=== PATIENT | male | born 1985 | race Caucasian/White ===

== ENCOUNTER 2023-09-08 08:51 | Inpatient (IN) | payer BC, OTHER ==
[2023-09-08] MEDS: MORPHINE SULFATE 4 MG/ML SYRINGE IVP STA ×2 (09:27→10:59)
[2023-09-08] MEDS: SODIUM CHLORIDE 0.9% 1,000 ML IV STA (09:27)
[2023-09-08] MEDS: FAMOTIDINE 20 MG/2 ML VIAL IV STA (09:27)
--- NOTE | 2023-09-08 09:29 | ED ---
Abdominal Pain HPI - General Chief Complaint: Abdominal Pain Stated Complaint: ABD Pain Time Seen by Provider: 09/08/23 09:05 Source: patient, RN notes reviewed Mode of arrival: ambulatory Limitations: no limitations - History of Present Illness Initial Comments: This is a 38-year-old male who presents to the emergency department for abdominal pain. Patient states that he ate a meatball sub last night and around 4 AM developed severe pain in the upper abdomen. He has had nausea but no vomiting. States that he has had problems with this in the past, and usually has associated vomiting as well as radiation of pain into the back. He has not had any radiation of pain or vomiting this time, however the pain has never been this severe or lasted this long. Reports a history of acid reflux, but denies any known history of problems with his gallbladder. Patient did have a notably elevated blood pressure on arrival. States that he has a history of high blood pressure, but does not like going to the doctor and ran out of his medication, and thus stopped taking it. Denies any headaches or visual changes. MD Complaint: abdominal pain - Related Data Home Medications Medication Instructions Recorded Confirmed No Known Home Medications 09/08/23 09/08/23 Allergies Allergy/AdvReac Type Severity Reaction Status Date / Time No Known Allergies Allergy Verified 09/08/23 16:41 Review of Systems ROS Statement: Those systems with pertinent positive or pertinent negative responses have been documented in the HPI. ROS Other: All systems not noted in ROS Statement are negative. Past Medical History Past Medical History: Hypertension History of Any Multi-Drug Resistant Organisms: None Reported Past Surgical History: No Surgical Hx Reported Past Psychological History: Depression Smoking Status: Vaper Past Alcohol Use History: Rare Past Drug Use History: Marijuana General Exam Limitations: no limitations General appearance: alert, in distress Respiratory exam: Present: normal lung sounds bilaterally. Absent: respiratory distress, wheezes, rales, rhonchi, stridor Cardiovascular Exam: Present: regular rate, normal rhythm, normal heart sounds. Absent: systolic murmur, diastolic murmur, rubs, gallop, clicks GI/Abdominal exam: Present: soft, tenderness (Epigastric), normal bowel sounds. Absent: distended Neurological exam: Present: alert, oriented X3, CN II-XII intact Psychiatric exam: Present: normal affect, normal mood Skin exam: Present: warm, dry, intact, normal color. Absent: rash Course Vital Signs 03/23/24 03/23/24 03/23/24 08:51 10:30 11:00 Temperature 98.3 F Pulse Rate 82 66 71 Respiratory 20 20 16 Rate Blood Pressure 212/136 186/113 185/116 O2 Sat by Pulse 99 95 96 Oximetry 09/08/23 09/08/23 09/08/23 11:30 12:00 12:30 Temperature Pulse Rate 67 64 64 Respiratory 15 17 18 Rate Blood Pressure 179/125 156/99 186/129 O2 Sat by Pulse 95 96 96 Oximetry 09/08/23 09/08/23 09/08/23 13:00 13:30 14:00 Temperature Pulse Rate 77 78 62 Respiratory 18 18 18 Rate Blood Pressure 171/83 155/100 166/103 O2 Sat by Pulse 97 99 97 Oximetry 09/08/23 17:13 Temperature 97.3 F L Pulse Rate 88 Respiratory 20 Rate Blood Pressure 182/111 O2 Sat by Pulse 97 Oximetry Medical Decision Making - Medical Decision Making This is a 38 year old male who presents to the emergency department for abdominal pain. Was pt. sent in by a medical professional or institution? @ -No Did you speak to anyone other than the patient for history? @ -No Did you review nursing and triage notes? @ -Yes, and I agree, it is accurate with regards to the patient's symptoms. Were old charts reviewed? @ -No Differential Diagnosis? @ -Differential Abdominal Pain Men: Appendicitis, cholecystitis, diverticulosis, ischemic bowel, pancreatitis, hepa titis, UTI, gastroenteritis, AAA, incarcerated hernia, bowel obstruction, constipation, inflammatory bowel, hepatitis, peptic ulcer disease, splenic infarction, perforated viscus, testicular torsion, this is not meant to be an all-inclusive list EKG interpreted by me (3pts min.)? @ -EKG interpreted by me demonstrating the following: Sinus rhythm. Ventricular rate 89 bpm, FL interval 122 ms, QRS duration 95 ms, QTc 401 ms. X-rays interpreted by me (1pt min.)? @ -Not obtained CT interpreted by me (1pt min.)? @ -Not obtained U/S interpreted by me (1pt. min.)? @ -Gallbladder US obtained. My interpretation identifies cholelithiasis/biliary sludge. What testing was considered but not performed? (CT, X-rays, U/S, labs)? Why? @ -None What meds were considered but not given? Why? @ -None Did you discuss the management of the patient with other professionals? @ -Yes, Dr. Erwin, who advised admission to medicine with surgical consult. Jermaine with [facility] accepts the patient for admission to medicine. Did you reconcile home meds? @ -No Was smoking cessation discussed for >3mins.? @ -No Was critical care preformed (if so, how long)? @ -No Were there social determinants of health that impacted care today? How? (Homelessness, low income, unemployed, alcoholism, drug addiction, transportation, low edu. Level, literacy, decrease access to med. care, snf, rehab)? @ -No Was there de-escalation of care discussed even if they declined? (Discuss DNR or withdrawal of care, Hospice)? @ -No What co-morbidities impacted this encounter? (DM, HTN, Smoking, COPD, CAD, Cancer, CVA, Hep., AIDS, mental health diagnosis, sleep apnea, morbid obesity)? @ -Morbid obesity Was patient admitted / discharged? @ -Admitted. Patient's blood pressure was notably elevated on arrival at 212/136. He has been diagnosed with hypertension in the past, but does not follow with a primary care provider regularly and is no longer taking any m edication. EKG also revealed some concerning ST depression. Lab work demonstrates leukocytosis with a white blood cell count of 13.5. Lactic acid elevated at 2.8. We did get 2 troponins due to EKG changes, both of which were negative. Gallbladder ultrasound obtained demonstrating biliary sludge/small gravel like stones without evidence of acute cholecystitis. Patient did receive multiple doses of pain medication, however the pain returned after 30 minutes to an hour each time. Given the patient's intractable pain with associated leukocytosis and elevated lactic acid, case discussed with general surgery. He advised that the patient could be admitted for persistent pain related to bili reba colic, but requested admission to medicine. Patient admitted to medicine for intractable abdominal pain related to biliary colic. Undiagnosed new problem with uncertain prognosis? @ -None Drug Therapy requiring intensive monitoring for toxicity (Heparin, Nitro, Insulin, Cardizem)? @ -None Were any procedures done? @ -None Diagnosis/symptom? @ -Biliary colic, cholelithiasis, intractable abdominal pain Acute, or Chronic, or Acute on Chronic? @ -Acute Uncomplicated (without systemic symptoms) or Complicated (systemic symptoms)? @ -Complicated Side effects of treatment? @ -None Exacerbation, Progression, or Severe Exacerbation] @ -Not applicable Poses a threat to life or bodily function? @ -Yes This case was discussed in detail with the attending ED physician, Dr. Myers. Presentation, findings, and treatment plan discussed in detail as well. - Lab Data Result diagrams: 09/08/23 09:08 09/08/23 09:08 Lab Results 09/08/23 09/08/23 09/08/23 Range/Units 09:08 09:08 09:08 WBC 13.5 H (3.8-10.6) k/uL RBC 5.18 (4.30-5.90) m/uL Hgb 16.2 (13.0-17.5) gm/dL Hct 48.5 (39.0-53.0) % MCV 93.6 (80.0-100.0) fL MCH 31.3 (25.0-35.0) pg MCHC 33.4 (31.0-37.0) g/dL RDW 12.7 (11.5-15.5) % Plt Count 293 (150-450) k/uL MPV 7.9 Neutrophils % 82 % Lymphocytes % 12 % Monocytes % 4 % Eosinophils % 1 % Basophils % 1 % Neutrophils # 11.0 H (1.3-7.7) k/uL Lymphocytes # 1.6 (1.0-4.8) k/uL Monocytes # 0.6 (0-1.0) k/uL Eosinophils # 0.1 (0-0.7) k/uL Basophils # 0.1 (0-0.2) k/uL Sodium 139 (137-145) mmol/L Potassium 4.9 (3.5-5.1) mmol/L Chloride 105 (98-107) mmol/L Carbon Dioxide 22 (22-30) mmol/L Anion Gap 12 mmol/L BUN 12 (9-20) mg/dL Creatinine 0.63 L (0.66-1.25) mg/dL Est GFR (CKD-EPI)AfAm >90 (>60 ml/min/1.73 sqM) Est GFR (CKD-EPI)NonAf >90 (>60 ml/min/1.73 sqM) Glucose 211 H (74-99) mg/dL Lactic Ac Sepsis Rflx Plasma Lactic Acid Arnaldo 2.8 H* (0.7-2.0) mmol/L Calcium 9.4 (8.4-10.2) mg/dL Total Bilirubin 0.7 (0.2-1.3) mg/dL AST 54 (17-59) U/L ALT 54 H (4-49) U/L Alkaline Phosphatase 45 (38-126) U/L Troponin I (0.000-0.034) ng/mL Total Protein 7.7 (6.3-8.2) g/dL Albumin 4.6 (3.5-5.0) g/dL Amylase 50 (30-110) U/L Lipase 70 (23-300) U/L 09/08/23 09/08/23 09/08/23 Range/Units 09:28 09:49 11:19 WBC (3.8-10.6) k/uL RBC (4.30-5.90) m/uL Hgb (13.0-17.5) gm/dL Hct (39.0-53.0) % MCV (80.0-100.0) fL MCH (25.0-35.0) pg MCHC (31.0-37.0) g/dL RDW (11.5-15.5) % Plt Count (150-450) k/uL MPV Neutrophils % % Lymphocytes % % Monocytes % % Eosinophils % % Basophils % % Neutrophils # (1.3-7.7) k/uL Lymphocytes # (1.0-4.8) k/uL Monocytes # (0-1.0) k/uL Eosinophils # (0-0.7) k/uL Basophils # (0-0.2) k/uL Sodium (137-145) mmol/L Potassium (3.5-5.1) mmol/L Chloride (98-107) mmol/L Carbon Dioxide (22-30) mmol/L Anion Gap mmol/L BUN (9-20) mg/dL Creatinine (0.66-1.25) mg/dL Est GFR (CKD-EPI)AfAm (>60 ml/min/1.73 sqM) Est GFR (CKD-EPI)NonAf (>60 ml/min/1.73 sqM) Glucose (74-99) mg/dL Lactic Ac Sepsis Rflx Y Plasma Lactic Acid Arnaldo (0.7-2.0) mmol/L Calcium (8.4-10.2) mg/dL Total Bilirubin (0.2-1.3) mg/dL AST (17-59) U/L ALT (4-49) U/L Alkaline Phosphatase (38-126) U/L Troponin I <0.012 <0.012 (0.000-0.034) ng/mL Total Protein (6.3-8.2) g/dL Albumin (3.5-5.0) g/dL Amylase (30-110) U/L Lipase (23-300) U/L - Radiology Data Radiology results: report reviewed, image reviewed Disposition Clinical Impression: Intractable abdominal pain, Biliary colic, Biliary sludge, Cholelithiasis Disposition: ADMITTED IP TO THIS [facility] Time of Disposition: 13:14
[2023-09-08 09:30] LABS: Basophils # (A) 0.1 k/uL (0-0.2); Basophils % (A) 1 %; Eosinophils # (A) 0.1 k/uL (0-0.7); Eosinophils % (A) 1 %; HCT 48.5 % (39.0-53.0); HGB 16.2 gm/dL (13.0-17.5); Lymphocytes # (A) 1.6 k/uL (1.0-4.8); Lymphocytes % (A) 12 %; MCH 31.3 pg (25.0-35.0); MCHC 33.4 g/dL (31.0-37.0); MCV 93.6 fL (80.0-100.0); Mean Platelet Volume 7.9; Monocytes # (A) 0.6 k/uL (0-1.0); Monocytes % (A) 4 %; Neutrophils % (A) 82 %; Platelet Count 293 k/uL (150-450); RBC 5.18 m/uL (4.30-5.90); RDW 12.7 % (11.5-15.5); WBC 13.5 k/uL (3.8-10.6)
[2023-09-08 09:44] LABS: ALT 54 U/L (4-49); African American GFR (CKD) >90 (>60 ml/min/1.73 sqM); Albumin 4.6 g/dL (3.5-5.0); Amylase 50 U/L (30-110); Anion Gap 12 mmol/L; Blood Urea Nitrogen 12 mg/dL (9-20); Calcium 9.4 mg/dL (8.4-10.2); Carbon Dioxide 22 mmol/L (22-30); Chloride 105 mmol/L (98-107); Glucose 211 mg/dL (74-99); Lipase 70 U/L (23-300); Non-African American GFR(CKD) >90 (>60 ml/min/1.73 sqM); Sodium 139 mmol/L (137-145); Total Bilirubin 0.7 mg/dL (0.2-1.3); Total Protein 7.7 g/dL (6.3-8.2)
[2023-09-08 09:48] LABS: AST 54 U/L (17-59); Alkaline Phosphatase 45 U/L (38-126); Potassium 4.9 mmol/L (3.5-5.1)
[2023-09-08] MEDS: KETOROLAC 15 MG/ML 1 ML VIAL IVP STA (10:16)
--- NOTE | 2023-09-08 10:29 | US ---
EXAMINATION TYPE: US gallbladder DATE OF EXAM: 09/08/2023 COMPARISON: NONE CLINICAL INDICATION: Male, 38 years old with history of RUQ pain; Severe epigastric pain after eating last night TECHNIQUE: Multiple sonographic images of the right upper quadrant are obtained. FINDINGS: EXAM MEASUREMENTS: Liver Length: 21.1 cm Gallbladder Wall: 0.1 cm CBD: not visualized due to overlying bowel Right Kidney: 12.6x6.8x6.9 cm Pancreas: Tail obscured by overlying bowel gas Liver: enlarged, increased echogenicity and attenuation, coarse echotexture Gallbladder: there appears to be small, gravel like stones/sludge within the GB Evidence for sonographic Ferreira's sign: No CBD: Obscured by overlying bowel gas Right Kidney: No hydronephrosis or masses seen exam very limited by large body habitus and overlying bowel gas IMPRESSION: 1. Limited study. 2. Fatty infiltration of liver and hepatomegaly. 3. Gallbladder sludge without distention, wall thickening or pericholecystic fluid. Sonographic Janell y sign is negative. 4. Limited evaluation of the pancreatic tail.
[2023-09-08] MEDS ORDERED: NALOXONE 0.4 MG/ML 1 ML VIAL IV PRN (13:12)
[2023-09-08] MEDS ORDERED: ONDANSETRON 4 MG/2 ML VIAL IVP PRN (13:12)
[2023-09-08] MEDS ORDERED: MORPHINE SULFATE 2 MG/ML SYRINGE IVP PRN (13:23)
[2023-09-08] MEDS: HYDROmorphone 0.5 MG/0.5 ML SYRINGE IVP STA (14:25)
[2023-09-08] MEDS: SODIUM CHLORIDE 0.9% 1,000 ML IV SCH (14:25)
--- NOTE | 2023-09-08 14:35 | P.HPIM ---
History of Present Illness H&P Date: 09/08/23 History of Presenting Illness: Patient is a very pleasant 38-year-old male with a past medical history of hypertension and obesity. He presented to the emergency department with a chief complaint of right upper quadrant and epigastric pain. Patient reports awakening around 3 AM with pain to his right upper quadrant accompanied by nausea and significant acid reflux. Patient reports this pain progressively worsened to the point it was severe 10 out of 10 causing him to break out in cold sweats. He denies any noted fevers, chills, chest pain, palpitations, shortness of breath, cough or congestion, episodes of vomiting, or experiencing any constipation, diarrhea, melena, or hematochezia. Patient reports he does have a history of hypertension but stopped taking his medications approximately 5 years ago because he becomes extremely anxious around doctors and did not follow back up. Patient reports he is from [place] and does not have a P CP. He underwent evaluation in the emergency department. Vital signs upon arrival blood pressure 212/136, heart rate 82, respiratory rate 20, temp 98.3 F, and SpO2 of 99% on room air. EKG was completed showing normal sinus rhythm at 89 bpm with T wave inversion in inferior leads II, III, and aVF. Labs completed and reviewed. CBC showing leukocytosis with WBC count of 13.5. BMP showing mild hyperglycemia with glucose of 211. Liver profile showing elevated ALT of 54 otherwise normal findings. Amylase 50 and lipase 70. Lactic acid was elevated at 2.8. Troponin negative at less than 0.012. Gallbladder ultrasound completed showing gallbladder sludge. Patient received 2 L bolus of 0.9% normal saline and was started on IV antibiotics with Rocephin 2 g. Patient admitted under our services with consultation to general surgeon. General surgery evaluated stating patient with acute cholecystitis recommending clear liquids and n.p.o. at midnight with tentative plans for laparoscopic cholecystectomy within the next 48 hours. Review of systems: Pertinent positives and negatives as discussed in HPI, a complete review of systems was performed and all other systems are negative. Physical exam: Vital signs reviewed and stable. General: Nontoxic, no distress and appears stated age. Morbidly obese Derm: Skin warm and dry, normal coloration for ethnicity. Head: Atraumatic, normocephalic and symmetric. Eyes: EOMs intact, no lid lag, and anicteric sclera Mouth: no lip lesions, mucus membranes moist Cardiovascular: regular rate and rhythm with normal S1S2, no murmur, positive posterior tibial pulses bilaterally, and cap refill < 2 seconds. Lungs: Respirations even, regular, and unlabored on room air. Lungs CTA bilaterally, no rhonchi, no rales, no wheezing, and no accessory muscle usage. Abdominal: Obese abdomen, significant tenderness to right upper quadrant, no guarding, no appreciable organomegaly Ext: ROM intact. No gross muscle atrophy, no edema, no contractures Neuro: Speech clear, face symmetrical and CN II-XII grossly intact with no noted focal neuro deficits Psych: Alert and oriented to person, place, time, and situation. Appropriate and pleasant affect. Assessment and Plan of Care: Acute cholecystitis Intractable abdominal pain, secondary to above Lactic acidosis -General surgery consulted and discussed plan of care with general surgeon stating patient with acute cholecystitis and recommending clear liquid diet and n.p.o. at midnight with tentative plans for laparoscopic cholecystectomy within the next 48 hours. -Gentle IV fluid hydration with 0.9% normal saline at 100 cc/h. -GI prophylaxis with Protonix 40 mg IVP daily. -Symptomatic care and pain management. Zofran 4 mg IVP every 8 hours as needed for nausea and/or vomiting. Morphine 4 mg IVP every 4 hours as needed for pain. -IV antibiotics with Rocephin 2 g every 24 hours. -Patient received 2 L bolus and placed on maintenance infusion, continue to monitor lactate for resolution of lactic acidosis Abnormal EKG, concerning for inferior ischemia Hypertensive urgency upon arrival with longstanding history of poorly controlled hypertension -EKG completed showing normal sinus rhythm at 89 bpm with T wave inversion in inferior leads II, III, and aVF. -Troponins negative at less than 0.012 x 2 draws. -Cardiology consulted for evaluation and surgical clearance -Order placed for echocardiogram -Patient placed on continuous telemetry monitoring -Patient started on amlodipine 5 mg daily Data and imaging reviewed: As stated above in HPI CODE STATUS: Full code DVT prophylaxis: Lovenox Anticipated discharge date: Clinical course to determine Anticipated discharge place: Clinical course to determine Patient was seen independently by Nurse Practitioner. This document was prepared using [employer] dictation software. Please allow for errors in director of academic while rare they do occur. Jermaine Jose NP rendered care for this patient independently, reviewed the findings and plan as documented in the note above. I did not physically speak with or examine the patient on this date. Past Medical History Past Medical History: Hypertension History of Any Multi-Drug Resistant Organisms: None Reported Past Surgical History: No Surgical Hx Reported Past Psychological History: Depression Smoking Status: Vaper Past Alcohol Use History: Rare Past Drug Use History: Marijuana Medications and Allergies Allergies Allergy/AdvReac Type Severity Reaction Status Date / Time No Known Allergies Allergy Verified 09/08/23 16:41 Physical Exam Vitals: Vital Signs Temp Pulse Resp BP Pulse Ox 09/08/23 14:00 62 18 166/103 97 09/08/23 13:30 78 18 155/100 99 09/08/23 13:00 77 18 171/83 97 09/08/23 12:30 64 18 186/129 96 09/08/23 12:00 64 17 156/99 96 09/08/23 11:30 67 15 179/125 95 09/08/23 11:00 71 16 185/116 96 09/08/23 10:30 66 20 186/113 95 09/08/23 08:51 98.3 F 82 20 212/136 99 Intake and Output 09/07/23 09/08/23 09/08/23 22:59 06:59 14:59 Other: Weight 172.365 kg Results CBC & Chem 7: 09/08/23 09:08 09/08/23 09:08 Labs: Abnormal Lab Results - Last 24 Hours (Table) 09/08/23 09/08/23 09/08/23 Range/Units 09:08 09:08 09:08 WBC 13.5 H (3.8-10.6) k/uL Neutrophils # 11.0 H (1.3-7.7) k/uL Creatinine 0.63 L (0.66-1.25) mg/dL Glucose 211 H (74-99) mg/dL Plasma Lactic Acid Arnaldo 2.8 H* (0.7-2.0) mmol/L ALT 54 H (4-49) U/L
[2023-09-08] MEDS: cefTRIAXone IN SWFI 1,000 MG/10 ML SYRINGE IVP STA (15:03)
[2023-09-08] MEDS: amLODIPine 5 MG TAB PO SCH (15:03)
[2023-09-08] MEDS: SODIUM CHLORIDE 0.9% 1,000 ML IV ONE (16:14)
--- NOTE | 2023-09-08 21:03 | P.GSCN ---
History of Present Illness Consult date: 09/08/23 Reason for Consult: RUQ Pain History of present illness: 38-year-old male with no past medical history presents with right upper quadrant pain. Patient states that he has had acute onset of right upper quadrant pain for the past 2 days. He states he has had prior episodes such as this but not as severe. He states that the pain occurs when he has greasy fatty foods in the past and states that he had a large fatty meal prior to the onset of his pain. He endorses nausea and emesis. No hematemesis. No fevers or chills. No shortness of breath or chest pain. Endorses bowel movements and flatus the day prior to presentation. No melena or hematochezia. Upon presentation to [facility] right upper quadrant ultrasound was obtained which showed evidence of gallbladder sludge without evidence of pericholecystic fluid or wall thickening. Review of Systems Negative except for as stated above Past Medical History Past Medical History: Hypertension History of Any Multi-Drug Resistant Organisms: None Reported Past Surgical History: No Surgical Hx Reported Past Psychological History: Depression Smoking Status: Vaper Past Alcohol Use History: Rare Past Drug Use History: Marijuana Medications and Allergies Home Medications Medication Instructions Recorded Confirmed Type No Known Home Medications 09/08/23 09/08/23 History Allergies Allergy/AdvReac Type Severity Reaction Status Date / Time No Known Allergies Allergy Verified 09/08/23 16:41 Surgical - Exam Vital Signs Temp Pulse Resp BP Pulse Ox 98.3 F 82 20 212/136 99 09/08/23 08:51 09/08/23 08:51 09/08/23 08:51 09/08/23 08:51 09/08/23 08:51 Gen: AxO, appears uncomfortable Pulm: non-labored respirations Abd: soft, tender to palpation in RUQ. Ferreira's sign positive. Mildly distended. No guarding/rebound/rigidity Extrem: no edema seen Results - Labs 09/08/23 09:08 09/08/23 09:08 Abnormal Lab Results - Last 24 Hours (Table) 09/08/23 09/08/23 09/08/23 Range/Units 09:08 09:08 09:08 WBC 13.5 H (3.8-10.6) k/uL Neutrophils # 11.0 H (1.3-7.7) k/uL Creatinine 0.63 L (0.66-1.25) mg/dL Glucose 211 H (74-99) mg/dL Plasma Lactic Acid Arnaldo 2.8 H* (0.7-2.0) mmol/L ALT 54 H (4-49) U/L 09/08/23 Range/Units 15:00 WBC (3.8-10.6) k/uL Neutrophils # (1.3-7.7) k/uL Creatinine (0.66-1.25) mg/dL Glucose (74-99) mg/dL Plasma Lactic Acid Arnaldo 2.8 H* (0.7-2.0) mmol/L ALT (4-49) U/L Diabetes panel 09/08/23 Range/Units 09:08 Sodium 139 (137-145) mmol/L Potassium 4.9 (3.5-5.1) mmol/L Chloride 105 (98-107) mmol/L Carbon Dioxide 22 (22-30) mmol/L BUN 12 (9-20) mg/dL Creatinine 0.63 L (0.66-1.25) mg/dL Glucose 211 H (74-99) mg/dL Calcium 9.4 (8.4-10.2) mg/dL AST 54 (17-59) U/L ALT 54 H (4-49) U/L Alkaline Phosphatase 45 (38-126) U/L Total Protein 7.7 (6.3-8.2) g/dL Albumin 4.6 (3.5-5.0) g/dL Calcium panel 09/08/23 Range/Units 09:08 Calcium 9.4 (8.4-10.2) mg/dL Albumin 4.6 (3.5-5.0) g/dL Pituitary panel 09/08/23 Range/Units 09:08 Sodium 139 (137-145) mmol/L Potassium 4.9 (3.5-5.1) mmol/L Chloride 105 (98-107) mmol/L Carbon Dioxide 22 (22-30) mmol/L BUN 12 (9-20) mg/dL Creatinine 0.63 L (0.66-1.25) mg/dL Glucose 211 H (74-99) mg/dL Calcium 9.4 (8.4-10.2) mg/dL Adrenal panel 03/23/24 Range/Units 09:08 Sodium 139 (137-145) mmol/L Potassium 4.9 (3.5-5.1) mmol/L Chloride 105 (98-107) mmol/L Carbon Dioxide 22 (22-30) mmol/L BUN 12 (9-20) mg/dL Creatinine 0.63 L (0.66-1.25) mg/dL Glucose 211 H (74-99) mg/dL Calcium 9.4 (8.4-10.2) mg/dL Total Bilirubin 0.7 (0.2-1.3) mg/dL AST 54 (17-59) U/L ALT 54 H (4-49) U/L Alkaline Phosphatase 45 (38-126) U/L Total Protein 7.7 (6.3-8.2) g/dL Albumin 4.6 (3.5-5.0) g/dL Assessment and Plan Assessment: Patient is a 38-year-old male with acute onset of right upper quadrant pain and leukocytosis with ultrasonographic evidence of gallbladder sludge concerning for biliary colic versus acute cholecystitis Plan: -CLD NPO at ME -IVF hydration -IV Abx -PRN pain and nausea control -DVT/GI PPx -Trend LFT -Patient will likely require laparoscopic cholecystectomy this admission; timing TBD Damian Erwin MD General Surgery
[2023-09-08] MEDS: MORPHINE SULFATE 4 MG/ML SYRINGE IV PRN (21:41)
[2023-09-08] MEDS: ALPRAZolam 0.5 MG TAB PO STA ×2 (23:42)
[2023-09-09] MEDS: hydrALAZINE HCL 25 MG TAB PO STA (01:00)
[2023-09-09] MEDS: ACETAMINOPHEN IV (For NPO) 1,000 MG in EMPTY BAG 1 BAG IVPB PRN (01:58)
[2023-09-09 02:54] VITALS: TEMP 98
[2023-09-09] MEDS: LABETALOL 200 MG TAB PO STA (03:15)
[2023-09-09] MEDS: hydrALAZINE HCL 50 MG TAB PO STA (05:47)
[2023-09-09 09:27] LABS: HCT 42.7 % (39.0-53.0); HGB 14.9 gm/dL (13.0-17.5); MCH 32.4 pg (25.0-35.0); MCHC 34.8 g/dL (31.0-37.0); MCV 93.2 fL (80.0-100.0); Mean Platelet Volume 8.3; Platelet Count 251 k/uL (150-450); RBC 4.58 m/uL (4.30-5.90); RDW 13.2 % (11.5-15.5); WBC 13.4 k/uL (3.8-10.6)
[2023-09-09] MEDS: amLODIPine 10 MG TAB PO SCH (09:42)
[2023-09-09] MEDS: PANTOPRAZOLE 40 MG/10 ML VIAL IV SCH (09:43)
[2023-09-09 09:46] LABS: ALT 43 U/L (4-49); AST 29 U/L (17-59); African American GFR (CKD) >90 (>60 ml/min/1.73 sqM); Albumin 3.8 g/dL (3.5-5.0); Alkaline Phosphatase 48 U/L (38-126); Anion Gap 11 mmol/L; Blood Urea Nitrogen 10 mg/dL (9-20); Calcium 8.6 mg/dL (8.4-10.2); Carbon Dioxide 25 mmol/L (22-30); Chloride 101 mmol/L (98-107); Glucose 153 mg/dL (74-99); Magnesium 1.8 mg/dL (1.6-2.3); Non-African American GFR(CKD) >90 (>60 ml/min/1.73 sqM); Potassium 4.1 mmol/L (3.5-5.1); Sodium 137 mmol/L (137-145); Total Bilirubin 0.6 mg/dL (0.2-1.3); Total Protein 6.3 g/dL (6.3-8.2)
--- NOTE | 2023-09-09 11:02 | P.PN ---
Subjective Progress Note Date: 09/09/23 Patient reports he is traveling from [place]. He does not live in [place]. Also confirms he was on Mediterranean diet and lost intentionally 20 pounds in 3 weeks. Patient ate a high fatty food and immediately developed right upper quadrant epigastric pain. He has had similar episodes. Patient also reports severe anxiety in the hospital accelerating his hypertension. Clinically patient presents with symptomatic gallstones/cholecystitis. Patient also confirms family history of mother also had cholecystectomy. Recommend cardiac risk assessment. Pending cardiac risk assessment, cholecystectomy described while inpatient. Options and care plans discussed and described with patient and family at bedside Objective - Vital Signs Vital signs: Vital Signs Temp 98 F 09/09/23 02:52 Pulse 95 09/09/23 09:41 Resp 16 09/09/23 09:41 BP 177/106 09/09/23 09:41 Pulse Ox 94 L 09/09/23 09:41 FiO2 Intake & Output 09/08/23 09/09/23 09/09/23 18:59 06:59 18:59 Intake Total 240 Balance 240 Weight 172.365 kg 172.365 kg Intake: Oral 240 Other: # Voids 1 - Labs CBC & Chem 7: 09/09/23 08:31 09/09/23 08:31 Labs: Abnormal Lab Results - Last 24 Hours (Table) 09/08/23 09/08/23 09/09/23 Range/Units 09:08 15:00 08:31 WBC 13.4 H (3.8-10.6) k/uL Glucose (74-99) mg/dL Hemoglobin A1c 6.6 H (<=6.0) % Plasma Lactic Acid Arnaldo 2.8 H* (0.7-2.0) mmol/L 09/09/23 Range/Units 08:31 WBC (3.8-10.6) k/uL Glucose 153 H (74-99) mg/dL Hemoglobin A1c (<=6.0) % Plasma Lactic Acid Arnaldo (0.7-2.0) mmol/L
--- NOTE | 2023-09-09 12:13 | P.PN ---
Subjective Progress Note Date: 09/09/23 Hospital course: Patient is a very pleasant 38-year-old male with a past medical history of hypertension and obesity. He presented to the emergency department with a chief complaint of right upper quadrant and epigastric pain. Patient reports awakening around 3 AM with pain to his right upper quadrant accompanied by nausea and significant acid reflux. Patient reports this pain progressively worsened to the point it was severe 10 out of 10 causing him to break out in cold sweats. He denies any noted fevers, chills, chest pain, palpitations, shortness of breath, cough or congestion, episodes of vomiting, or experiencing any constipation, diarrhea, melena, or hematochezia. Patient reports he does have a history of hypertension but stopped taking his medications approximately 5 years ago because he becomes extremely anxious around doctors and did not follow back up. Patient reports he is from [place] and does not have a PCP. He underwent evaluation in the emergency department. Vital signs upon arrival blood pressure 212/136, heart rate 82, respiratory rate 20, temp 98.3 F, and SpO2 of 99% on room air. EKG was completed showing normal sinus rhythm at 89 bpm with T wave inversion in inferior leads II, III, and aVF. Labs completed and reviewed. CBC showing leukocytosis with WBC count of 13.5. BMP showing mild hyperglycemia with glucose of 211. Liver profile showing elevated ALT of 54 otherwise normal findings. Amylase 50 and lipase 70. Lactic acid was elevated at 2.8. Troponin negative at less than 0.012. Gallbladder ultrasound completed showing gallbladder sludge. Patient received 2 L bolus of 0.9% normal saline and was started on IV antibiotics with Rocephin 2 g. Patient admitted under our services with consultation to general surgeon. General surgery evaluated stating patient with symptomatic gallstones/acute cholecystitis recommending cardiac clearance and pending cardiac clearance cholecystectomy while inpatient. Physical exam: Patient seen and fully evaluated at the bedside this morning. He does report at this time having near resolution of previous pain to right upper quadrant. He remains significantly hypertensive this morning with current blood pressure 177/106, amlodipine increased to 10 mg daily, will reevaluate blood pressure after medication administered and possibly place patient on additional antihypertensive medications pending repeat vital signs. Awaiting cardiac evaluation and further recommendations at this time. Vital signs reviewed General: Nontoxic, no distress and appears stated age. Morbidly obese Derm: Skin warm and dry, normal coloration for ethnicity. Head: Atraumatic, normocephalic and symmetric. Eyes: EOMs intact, no lid lag, and anicteric sclera Mouth: no lip lesions, mucus membranes moist Cardiovascular: regular rate and rhythm with normal S1S2, no murmur, positive posterior tibial pulses bilaterally, and cap refill < 2 seconds. Lungs: Respirations even, regular, and unlabored on room air. Lungs CTA bilat erally, no rhonchi, no rales, no wheezing, and no accessory muscle usage. Abdominal: Obese abdomen, patient reports near resolution of previous pain in right upper quadrant and was nontender upon palpation this morning, no guarding, no appreciable organomegaly Ext: ROM intact. No gross muscle atrophy, no edema, no contractures Neuro: Speech clear, face symmetrical and CN II-XII grossly intact with no noted focal neuro deficits Psych: Alert and oriented to person, place, time, and situation. Appropriate and pleasant affect. Assessment and Plan of Care: Symptomatic gallstones/acute cholecystitis Intractable abdominal pain, secondary to above Lactic acidosis, resolved -General surgery following, reviewed documentation in chart stating patient with symptomatic gallstones/acute cholecystitis recommending cardiac clearance and pending cardiac clearance cholecystectomy while inpatient. -Gentle IV fluid hydration with 0.9% normal saline at 100 cc/h. -GI prophylaxis with Protonix 40 mg IVP daily. -Symptomatic care and pain management. Zofran 4 mg IVP every 8 hours as needed for nausea and/or vomiting. Morphine 4 mg IVP every 4 hours as needed for pain. -Continue IV antibiotics with Rocephin 2 g every 24 hours. Abnormal EKG, concerning for inferior ischemia Hypertensive urgency upon arrival with longstanding history of poorly controlled hypertension -EKG completed showing normal sinus rhythm at 89 bpm with T wave inversion in inferior leads II, III, and aVF. -Troponins negative at less than 0.012 x 2 draws. -Cardiology consulted for evaluation and surgical clearance, appreciate recommendations -Order placed for echocardiogram -Patient placed on continuous telemetry monitoring -Amlodipine increased to 10 mg daily Hyperglycemia -Blood glucose level 211, hemoglobin A1c was obtained resulting at 6.6. Will likely start patient on Glucophage on discharge. Data and imaging reviewed: Vital signs reviewed. Blood pressure remains hypertensive with current BP 177/106, heart rate 95, respiratory rate 16, temp 98.0 F with SpO2 of 94% on room air. Morning labs reviewed. CBC showing leukocytosis with WBC count of 13.4. BMP showing mild hyperglycemia with glucose of 153. Magnesium 1.8. Liver profile unremarkable. CODE STATUS: Full code DVT prophylaxis: Lovenox Anticipated discharge date: Clinical course to determine Anticipated discharge place: Clinical course to determine Patient was seen independently by Nurse Practitioner. This document was prepared using [employer] dictation software. Please allow for errors in amusement park ride mechanic while rare they do occur. Jermaine Jose NP rendered care for this patient independently, reviewed the findings and plan as documented in the note above. I did not physically speak with or examine the patient on this date. Objective - Vital Signs Vital signs: Vital Signs Temp 98 F 09/09/23 02:52 Pulse 90 09/09/23 04:20 Resp 18 09/09/23 02:52 BP 192/105 09/09/23 04:20 Pulse Ox 98 09/09/23 02:52 FiO2 Intake & Output 09/08/23 09/09/23 09/09/23 18:59 06:59 18:59 Intake Total 240 Balance 240 Weight 172.365 kg 172.365 kg Intake: Oral 240 Other: # Voids 1 - Labs CBC & Chem 7: 09/09/23 08:31 09/09/23 08:31 Labs: Abnormal Lab Results - Last 24 Hours (Table) 09/08/23 09/08/23 09/08/23 Range/Units 09:08 09:08 09:08 WBC 13.5 H (3.8-10.6) k/uL Neutrophils # 11.0 H (1.3-7.7) k/uL Creatinine 0.63 L (0.66-1.25) mg/dL Glucose 211 H (74-99) mg/dL Hemoglobin A1c (<=6.0) % Plasma Lactic Acid Arnaldo 2.8 H* (0.7-2.0) mmol/L ALT 54 H (4-49) U/L 09/08/23 09/08/23 Range/Units 09:08 15:00 WBC (3.8-10.6) k/uL Neutrophils # (1.3-7.7) k/uL Creatinine (0.66-1.25) mg/dL Glucose (74-99) mg/dL Hemoglobin A1c 6.6 H (<=6.0) % Plasma Lactic Acid Arnaldo 2.8 H* (0.7-2.0) mmol/L ALT (4-49) U/L
[2023-09-09] MEDS: LOSARTAN 50 MG TAB PO STA (12:21)
[2023-09-09] MEDS ORDERED: DEXTROSE 50% SYRINGE 50 ML IVP PRN ×2 (12:47)
[2023-09-09] MEDS: ENOXAPARIN 40 MG/0.4 ML SYRINGE SQ SCH (13:11)
--- NOTE | 2023-09-09 15:00 | P.CRDCN ---
History of Present Illness Consult date: 09/09/23 Consult reason: pre-op evaluation Chief complaint: Abdominal pain History of present illness: History of present illness: Patient is a pleasant 38-year-old male with significant past medical history of obesity and hypertension who presented to the emergency department with complaints of right upper quadrant and epigastric pain. He had woken up around 3 AM with right upper quadrant pain and nausea. This pain had gotten progressively worse and he came to the ER. He did break out in a cold sweat. Denies any chest pain, palpitations, shortness of breath, vomiting. He does have a history of hypertension however has not been taking any medications for this. He does states that he does have higher blood pressure when he is at the doctors. Patient is currently visiting from [place] and is headed back there as soon as possible. EKG showed sinus rhythm with T wave inversions. Troponin was negative, potassium 4.1, creatinine 0.68. He reports having aortic stenosis as a child but did not require any intervention and has not followed up for this. He is no longer having any pain at this time. REVIEW OF SYSTEMS: No fever or chills. No cough or expectoration. No diaphoresis. Patient denies headache, dizziness, blurred vision, double vision. Patient denies any stomach discomfort. No nausea, vomiting. No hematochezia. No hematemesis. Denies any black stools or blood in his stools. Denies dysuria or hematuria. No muscle weakness or numbness. No chest pain or pressure. PHYSICAL EXAMINATION: This is a 38-year-old male in no apparent distress at the time of my examination. HEENT: Head is atraumatic, normocephalic. Pupils are equal, round. Sclerae anicteric. Conjunctivae are clear. Mucous membranes of the mouth are moist. Neck is supple. There is no jugular venous distention. No carotid bruit is heard. CHEST EXAMINATION: Lungs are clear to auscultation. No chest wall tenderness is noted on palpation or with deep breathing. HEART EXAMINATION: Heart regular rate and rhythm. S1, S2 heard, slight systolic murmur. No gallops or rub. ABDOMEN: Soft, nontender. Bowel sounds are heard. Obese. EXTREMITIES: 2+ peripheral pulses with no evidence of peripheral edema and no calf tenderness noted. NEUROLOGIC EXAMINATION: Patient is awake, alert and oriented x3. IMPRESSION AND PLAN: Hypertension Obesity Abdominal pain Abnormal EKG Cardiac murmur, eval for aortic stenosis Gallstones/cholecystitis Preoperative examination PLAN: We will check echocardiogram to evaluate heart function and structure. ECHO reviewed with Dr. Tirado, preserved EF, likely bicuspid aortic valve with mild stenosis. Blood pressure is not well-controlled. He was started on amlodipine and this was increased to 10 mg. Add losartan 100mg and 25mg chlorthidone. Monitor blood pressure. OK to discharge from cardiology standpoint. Follow up with cardiology in [place]. I am dictating on behalf of Dr. Kaleb Tirado's history/physical and assessment/plan. Past Medical History Past Medical History: Hypertension History of Any Multi-Drug Resistant Organisms: None Reported Past Surgical History: No Surgical Hx Reported Past Anesthesia/Blood Transfusion Reactions: No Reported Reaction Past Psychological History: Depression Smoking Status: Vaper Past Alcohol Use History: Rare Past Drug Use History: Marijuana Medications and Allergies Home Medications Medication Instructions Recorded Confirmed Type No Known Home Medications 09/08/23 09/08/23 History Allergies Allergy/AdvReac Type Severity Reaction Status Date / Time No Known Allergies Allergy Verified 09/08/23 16:41 Physical Exam Vitals: Vital Signs Temp Pulse Pulse Resp BP BP Pulse Ox 09/09/23 11:43 90 18 176/114 95 09/09/23 09:41 95 16 177/106 94 L 09/09/23 04:20 90 192/105 09/09/23 02:52 98 F 84 18 183/121 98 09/09/23 00:14 82 185/114 09/08/23 23:30 97.5 F L 96 18 203/109 97 09/08/23 23:00 76 16 168/94 98 09/08/23 17:13 97.3 F L 88 20 182/111 97 09/08/23 14:00 62 18 166/103 97 09/08/23 13:30 78 18 155/100 99 09/08/23 13:00 77 18 171/83 97 09/08/23 12:30 64 18 186/129 96 Intake and Output 09/08/23 09/09/23 09/09/23 22:59 06:59 14:59 Intake Total 240 Balance 240 Intake: Oral 240 Other: # Voids 1 3 Weight 172.365 kg Results 09/09/23 08:31 09/09/23 08:31 Cardiac Enzymes 09/09/23 Range/Units 08:31 AST 29 (17-59) U/L CBC 09/09/23 Range/Units 08:31 WBC 13.4 H (3.8-10.6) k/uL RBC 4.58 (4.30-5.90) m/uL Hgb 14.9 (13.0-17.5) gm/dL Hct 42.7 (39.0-53.0) % Plt Count 251 (150-450) k/uL Comprehensive Metabolic Panel 09/09/23 Range/Units 08:31 Sodium 137 (137-145) mmol/L Potassium 4.1 (3.5-5.1) mmol/L Chloride 101 (98-107) mmol/L Carbon Dioxide 25 (22-30) mmol/L BUN 10 (9-20) mg/dL Creatinine 0.68 (0.66-1.25) mg/dL Glucose 153 H (74-99) mg/dL Calcium 8.6 (8.4-10.2) mg/dL AST 29 (17-59) U/L ALT 43 (4-49) U/L Alkaline Phosphatase 48 (38-126) U/L Total Protein 6.3 (6.3-8.2) g/dL Albumin 3.8 (3.5-5.0) g/dL Current Medications Generic Name Dose Route Start Last Admin Trade Name Freq PRN Reason Stop Dose Admin Amlodipine Besylate 10 mg 09/09/23 09:00 09/09/23 09:42 Amlodipine 10 Mg Tab PO 10 mg DAILY ARLENE Administration Enoxaparin Sodium 40 mg 09/09/23 09:00 Enoxaparin 40 Mg/0.4 Ml Syringe SQ DAILY ARLENE Acetaminophen 1,000 mg/ IV 100 mls @ 400 mls/hr 09/08/23 13:23 09/09/23 01:58 Solution IVPB 09/09/23 13:24 400 mls/hr Q6H PRN Administration Mild Pain or Fever >= 100.5 Ceftriaxone Sodium 2 gm/ 50 mls @ 100 mls/hr 09/09/23 09:00 09/09/23 09:42 Sodium Chloride IVPB 100 mls/hr DAILY ARLENE Administration Morphine Sulfate 4 mg 09/08/23 13:12 09/09/23 03:15 Morphine Sulfate 4 Mg/Ml Syringe IV 4 mg Q4HR PRN Administration Severe Pain (Scale 7 to 10) Morphine Sulfate 2 mg 09/08/23 13:23 Morphine Sulfate 2 Mg/Ml Syringe IVP Q4HR PRN Moderate Pain (Scale 4 to 6) Naloxone HCl 0.2 mg 09/08/23 13:12 Naloxone 0.4 Mg/Ml 1 Ml Vial IV Q2M PRN Opioid Reversal Ondansetron HCl 4 mg 09/08/23 13:12 Ondansetron 4 Mg/2 Ml Vial IVP Q8HR PRN Nausea And Vomiting Pantoprazole Sodium 40 mg 09/09/23 09:00 09/09/23 09:43 Pantoprazole 40 Mg/10 Ml Vial IV 40 mg DAILY ARLENE Administration Intake and Output 09/08/23 09/09/23 09/09/23 22:59 06:59 14:59 Intake Total 240 Balance 240 Intake: Oral 240 Other: # Voids 1 3 Weight 172.365 kg 09/09/23 08:31 09/09/23 08:31
--- NOTE | 2023-09-09 15:08 | CA ---
Transthoracic Echo Report Name: Jonathon Bar Age: 38 Gender: M : 1985 Exam Date: 09/09/2023 11:07 Exam Location: [facility] Ht (in): 71 Wt (lb): 380 Ordering Physician: Jermaine Jose Attending/Referring Phys: Production Posting Clerk Sariah Nielsen RDCS Procedure CPT: Indications: assess structure and function of heart Cardiac Hx: Technical Quality: Very technically difficult study Contrast 1: Definity Total Dose (mL): 3 Contrast 2: Total Dose (mL): MEASUREMENTS (Male / Female) Normal Values DOPPLER AV Peak Velocity 190.3 cm/s AV Peak Gradient 14.5 mmHg AV Mean Velocity 130.6 cm/s AV Mean Gradient 7.6 mmHg AV Velocity Time Integral 31.3 cm LVOT Peak Velocity 82.6 cm/s LVOT Peak Gradient 2.7 mmHg LVOT Velocity Time Integral 17.0 cm Mitral E Point Velocity 120.2 cm/s Mitral A Point Velocity 65.4 cm/s Mitral E to A Ratio 1.8 MV Deceleration Time 211.7 ms MV E' Velocity 10.2 cm/s Mitral E to MV E' Ratio 11.8 FINDINGS Left Ventricle Left ventricular ejection fraction is estimated at 55-60%. Normal left ventricular wall motion. No obvious regional wall motion abnormalities. Right Ventricle Normal right ventricular size. Right Atrium Normal right atrial size. Left Atrium Normal left atrial size. Mitral Valve Mitral valve not well visualized. Aortic Valve Aortic valve not well visualized. Increased velocities across the aortic valve consistent with mild aortic stenosis Tricuspid Valve Trace tricuspid regurgitation. Pulmonic Valve No pulmonic regurgitation. Pericardium No pericardial effusion. Aorta Aortic root and proximal ascending aorta not well visualized. CONCLUSIONS Limited study, poor acoustic windows. Normal left ventricular ejection fraction 55-60% Mild aortic stenosis Trace tricuspid regurgitation No pericardial effusion Previewed by: Dr. Kaleb Tirado DO (Electronically Signed) Final Date: 09 September 2023 15:07
[2023-09-09 15:50] VITALS: BP 173/98; PULSE 84; RESP 16
--- NOTE | 2023-09-09 16:54 | P.DS ---
Providers Date of admission: 09/08/23 12:57 Expected date of discharge: 09/09/23 Attending physician: Mateo Huston MD Consults: 09/08/23 13:12 Consult Physician Urgent Consulting Provider: Karmen Jansen Consult Reason/Comments: Intractable abdominal pain with biliary sludge and cholelithiasis Do you want consulting provider notified?: Already Contacted 09/08/23 16:59 Consult Physician Routine Consulting Provider: Kaleb Tirado Consult Reason/Comments: abnormal EKG uncontrolled HTN presented w/ HTN urgency Need Sx clearance Do you want consulting provider notified?: Yes Primary care physician: Stated None Hospital Course: THIS IS NOT A DISCHARGE SUMMARY, THIS IS A SUMMARY OF CARE PT LEFT AGAINST MEDICAL ADVICE ON 09/09/23 at 4:13 PM Discharge Diagnosis: Symptomatic gallstones/acute cholecystitis Intractable abdominal pain, secondary to above Lactic acidosis, resolved Abnormal EKG, concerning for inferior ischemia Hypertensive urgency upon arrival with longstanding history of poorly controlled hypertension Hyperglycemia. Hemoglobin A1c 6.6%. Hospital course: Patient is a very pleasant 38-year-old male with a past medical history of hypertension and obesity. He presented to the emergency department with a chief complaint of right upper quadrant and epigastric pain. Patient reports awakening around 3 AM with pain to his right upper quadrant accompanied by nausea and significant acid reflux. Patient reports this pain progressively worsened to the point it was severe 10 out of 10 causing him to break out in cold sweats. He denies any noted fevers, chills, chest pain, palpitations, shortness of breath, cough or congestion, episodes of vomiting, or experiencing any constipation, diarrhea, melena, or hematochezia. Patient reports he does have a history of hypertension but stopped taking his medications approximately 5 years ago because he becomes extremely anxious around doctors and did not follow back up. Patient reports he is from [place] and does not have a PCP. He underwent evaluation in the emergency department. Vital signs upon arrival blood pressure 212/136, heart rate 82, respiratory rate 20, temp 98.3 F, and SpO2 of 99% on room air. EKG was completed showing normal sinus rhythm at 89 bpm with T wave inversion in inferior leads II, III, and aVF. Labs completed and reviewed. CBC showing leukocytosis with WBC count of 13.5. BMP showing mild hyperglycemia with glucose of 211. Liver profile showing elevated ALT of 54 otherwise normal findings. Amylase 50 and lipase 70. Lactic acid was elevated at 2.8. Troponin negative at less than 0.012. Gallbladder ultrasound completed showing gallbladder sludge. Patient received 2 L bolus of 0.9% normal saline and was started on IV antibiotics with Rocephin 2 g. Patient admitted under our services with consultation to general surgeon. General surgery evaluated stating patient with symptomatic gallstones/acute cholecystitis r ecommending cardiac clearance and pending cardiac clearance cholecystectomy while inpatient. Cardiology evaluated and started patient on losartan and chlorthalidone in addition to amlodipine. Echocardiogram completed. Patient's blood pressure remains elevated 180/100. Patient requesting discharge stating he would rather get further workup and surgery in [place]. Patient is not medically cleared for discharge at this time recommended patient take medications ordered by cardiology and monitor BP overnight for improvement. However received notification from RN that despite attempts to encourage patient to monitor for improvement patient left AMA. No medications sent to pharmacy at this time as patient is from out of state and left hospital. Patient is at high risk with current concerns of symptomatic gallstones/acute cholecystitis along with very poorly controlled hypertension, hyperglycemia, and morbid obesity. PT LEFT AGAINST MEDICAL ADVICE ON 09/09/23 at 4:13 PM Patient was seen independently by Nurse Practitioner. This document was prepared using [employer] dictation software. Please allow for errors in optics test technician while rare they do occur. Jermaine Jose NP rendered care for this patient independently, reviewed the findings and plan as documented in the note above. I did not physically speak with or examine the patient on this date. Patient Condition at Discharge: Undetermined Plan - Discharge Summary Discharge Rx Participant: No New Discharge Prescriptions: No Action No Known Home Medications Discharge Medication List No Known Home Medications 09/08/23 [History] Follow up Appointment(s)/Referral(s): None,Stated [Primary Care Provider] - 1-2 days Discharge Disposition: LEFT AGAINST MEDICAL ADVICE
[2023-09-09] MEDS ORDERED: INSULIN ASPART (NovoLOG) 100 UNIT/ML VIAL SQ SCH (17:30)
[2023-09-10] MEDS ORDERED: CHLORTHALIDONE 25 MG TAB PO SCH (09:00)
[2023-09-10] MEDS ORDERED: LOSARTAN 50 MG TAB PO SCH (09:00)
== END 2023-09-09 16:10 | disposition left against medical advice (07) | DRG 445 ==
LOC: EC 08:51 → 3SCARD 12:57 → OBSVTOIN 12:58 → 3SCARD 18:04
PROVIDERS: ADMIT Student in an Organized Health Care Education/Training Program; ATTEND Student in an Organized Health Care Education/Training Program
DX: K80.00 Calculus of gallbladder with acute cholecystitis without obstruction (principal); E87.20 Acidosis, unspecified; Z68.43 Body mass index [BMI] 50.0-59.9, adult; E66.01 Morbid (severe) obesity due to excess calories; I16.0 Hypertensive urgency; I10 Essential (primary) hypertension; F32.A Depression, unspecified; I35.0 Nonrheumatic aortic (valve) stenosis; Z28.310 Unvaccinated for COVID-19; R73.9 Hyperglycemia, unspecified; F41.9 Anxiety disorder, unspecified; K21.9 Gastro-esophageal reflux disease without esophagitis; R94.31 Abnormal electrocardiogram [ECG] [EKG]; Z53.29 Procedure and treatment not carried out because of patient's decision for other reasons; Z91.128 Patient's intentional underdosing of medication regimen for other reason
CPT/HCPCS: 36415; 76705; 80053; 82150; 83036; 83605; 83690; 83735; 84484; 85025; 85027; 87040; 93005; 93306; 96361; 96374; 96375; 96376; 99285